=== PATIENT | female | born 1930 | race Caucasian/White ===

== ENCOUNTER 2018-02-28 17:12 | Emergency (ER) | payer MEDICARE, OTHER ==
[~2018-02-28] VITALS: Ht 165.1 cm; Wt 81.8 kg
[~2018-02-28 17:12] MED LIST: ASPI81TA39 PO; ATOR40TA28 PO; DICL2100G TP; ESOM40SU PO; LORA0.5T2 PO; SUMA1TAB PO; TRAM50TA4 PO; ZOLP5 PO
[2018-02-28] MEDS ORDERED: PHENAZOPYRIDINE HCL 100 MG TABLET PO ONE (19:45)
[2018-02-28 20:19] VITALS: BP 138/80
== END 2018-02-28 20:20 | disposition home or self-care (01) ==
LOC: EMS 17:12
DX: N39.0 Urinary tract infection, site not specified (principal); F41.9 Anxiety disorder, unspecified; J45.909 Unspecified asthma, uncomplicated; K21.9 Gastro-esophageal reflux disease without esophagitis; E78.00 Pure hypercholesterolemia, unspecified; G43.909 Migraine, unspecified, not intractable, without status migrainosus; Z79.82 Long term (current) use of aspirin; Z90.710 Acquired absence of both cervix and uterus
CPT/HCPCS: 99283